=== PATIENT | female | born 1945 | race Caucasian/White ===

== ENCOUNTER 2018-05-05 10:02 | Outpatient (CLI) | payer MEDICARE ==
--- NOTE | 2018-05-05 12:13 | MMO ---
BILATERAL SCREENING MAMMOGRAM: HISTORY: A 72-year-old female. Routine screening mammography. COMPARISON: 03/25/2017, 02/25/2017, 07/14/2013. TECHNIQUE: CC and MLO views of both breasts are submitted for interpretation. This patient's mammogram is revie wed with the assistance of computer-aided detection. FINDINGS: Breasts are composed of scattered fibroglandular tissue. Bilaterally, no suspicious dominant mass, a rchitectural distortion, or suspicious calcification. Benign-appearing calcifications in the left br east. IMPRESSION: BI-RADS category 2, benign findings. RECOMMENDATION: Annual mammogram. BIRADS 2: Benign Finding(s) Routine annual screening mammography (for women over age 40) POS: YASMIN
== END 2018-05-05 10:03 | disposition home or self-care (01) ==
LOC: SCSMAMMO 10:02
PROVIDERS: ATTEND Family Medicine
DX: Z12.31 Encounter for screening mammogram for malignant neoplasm of breast (principal)
CPT/HCPCS: 77067

== ENCOUNTER 2018-06-23 21:14 | Emergency (ER) | payer MEDICARE ==
[2018-06-23] MEDS ORDERED: Ondansetron PF 4 MG/2 ML Vial ONE (22:51)
[2018-06-23 22:59] LABS: Hemoglobin 13.5 g/dL (12.0-16.0); Mean Corpuscular HGB CONC 32.5 g/dL (32.0-36.0); Mean Corpuscular Hemoglobin 28.1 pg (27.0-31.0); Mean Corpuscular Volume 86.5 fL (78.0-98.0); Mean Platelet Volume 6.1 fL (7.4-10.4); Platelet Count 240 thou/uL (130-400); RBC Distribution Width 13.2 % (11.5-14.5); Red Blood Cell (RBC) Count 4.81 mill/uL (4.20-5.40); White Blood Cell (WBC) Count 7.9 thou/uL (4.8-10.8)
[2018-06-23 23:00] LABS: ALT (SGPT) 29 U/L (8-55); AST (SGOT) 20 U/L (5-34); Albumin 3.9 g/dL (3.4-4.8); Alkaline Phosphatase 102 U/L (40-150); Anion Gap 15 mmol/L (10-20); BUN (Urea Nitrogen) 21 mg/dL (9.8-20.1); Bilirubin, Total 0.3 mg/dL (0.2-1.2); Calc. Creatinine Clearance 0 mL/min (70-130); Calcium 9.4 mg/dL (7.8-10.44); Carbon Dioxide 23 mmol/L (23-31); Chloride 106 mmol/L (98-107); Estimated GFR-MDRD 37; Glucose 119 mg/dL (83-110); Potassium 4.5 mmol/L (3.5-5.1); Protein, Total 6.9 g/dL (6.0-8.3); Sodium 139 mmol/L (136-145)
[2018-06-23 23:05] LABS: Band 3 % (5-11); Eosinophils 1 % (0-10); Lymphocytes 32 % (21-51); MDiff Complete? YES; Monocytes 9 % (0-10); Neutrophil 55 % (42-75)
== END 2018-06-23 23:08 | disposition left against medical advice (07) ==
LOC: SCSER 21:14
DX: R31.9 Hematuria, unspecified (principal); R11.2 Nausea with vomiting, unspecified; R19.7 Diarrhea, unspecified; G51.0 Bell's palsy; G43.909 Migraine, unspecified, not intractable, without status migrainosus
CPT/HCPCS: 80053; 85025; 93005; J2405

== ENCOUNTER 2019-12-10 07:05 | Outpatient (CLI) | payer MEDICARE, OTHER ==
[2019-12-10 14:20] LABS: Hemoglobin 13.8 g/dL (12.0-16.0); Mean Corpuscular HGB CONC 32.1 g/dL (32.0-36.0); Mean Corpuscular Hemoglobin 29.7 pg (27.0-31.0); Mean Corpuscular Volume 92.3 fL (78.0-98.0); Mean Platelet Volume 7.4 fL (7.4-10.4); Platelet Count 306 thou/uL (130-400); RBC Distribution Width 12.5 % (11.5-14.5); Red Blood Cell (RBC) Count 4.67 mill/uL (4.20-5.40); White Blood Cell (WBC) Count 6.4 thou/uL (4.8-10.8)
[2019-12-10 14:24] LABS: EPI 105 SEC (67-199); Platelet Count 301 thou/uL (130-400)
[2019-12-10 14:29] LABS: INR-International Normal Ratio 0.9; PTT 32.2 sec (22.9-36.1); Prothrombin Time 12.2 sec (12.0-14.7)
[2019-12-10 14:44] LABS: Anion Gap 13 mmol/L (10-20); BUN (Urea Nitrogen) 12 mg/dL (9.8-20.1); Calc. Creatinine Clearance 0 mL/min (70-130); Calcium 9.1 mg/dL (7.8-10.44); Carbon Dioxide 27 mmol/L (23-31); Chloride 107 mmol/L (98-107); Estimated GFR-MDRD 53; Glucose 95 mg/dL (83-110); Potassium 4.4 mmol/L (3.5-5.1); Sodium 143 mmol/L (136-145)
[2019-12-11 14:55] LABS: SARS-CoV-2 MS2 Positive; SARS-CoV-2 N Gene Negative; SARS-CoV-2 S Gene Negative; SARS-CoV-2 by NAA Not Detected (NotDetected); SARS-CoV-2 orf1ab Negative
== END 2019-12-10 07:06 | disposition home or self-care (01) ==
LOC: LABBT 07:05
PROVIDERS: ATTEND Urology
DX: Z01.812 Encounter for preprocedural laboratory examination (principal); Z20.828 Contact with and (suspected) exposure to other viral communicable diseases; N20.2 Calculus of kidney with calculus of ureter
CPT/HCPCS: 80048; 85027; 85576; 85610; 85730; U0003; 87635

== ENCOUNTER 2019-12-15 06:04 | Day surgery (SDC) | payer MEDICARE ==
[2019-12-13 12:02] VITALS: BMI 27.1
[2019-12-15] MEDS ORDERED: Fentanyl 100 MCG/2 ML VIAL ONE (06:35)
[2019-12-15] MEDS ORDERED: Iothalamate Meglumine 60% 50 ML VIAL FS ONE (06:45)
--- NOTE | 2019-12-15 08:42 | RAD ---
SUPINE ABDOMEN: HISTORY: Renal stones. COMPARISON: Comparison is made to supine film of 12/03/[address] of 12/08/2019. FINDINGS: The numerous calculi in the left renal collecting structures are identified on plain film with the la rgest measuring in the 8-10 mm range. The large irregularly shaped calculus in the upper collecting structures of the right kidney seen on CT measuring up to 1.5 cm is identified. Phlebolith-type calcifications in the pelvis. Bowel gas pa ttern unremarkable. IMPRESSION: Bilateral renal calculi again noted. POS: AGW
--- NOTE | 2019-12-15 09:50 | OP ---
DATE OF PROCEDURE: 12/15/2019 PREOPERATIVE DIAGNOSIS: Right mid-ureteral stone. POSTOPERATIVE DIAGNOSIS: Right mid-ureteral stone. PROCEDURES PERFORMED: Cystoscopy, right retrograde, right stent, and right extracorporeal shockwave lithotripsy. ANESTHESIA: General. ESTIMATED BLOOD LOSS: Not recorded. FINDINGS: There was at least a 7.5 mm size stone sitting over the right iliac region. Because of this, she was treated from anterior approach. A total of 3000 shocks was given at the maximum level of 5. The stone did appear to change its shape and lighten up. The stent was left indwelling without a string, it was a 6 x 24 cm. DESCRIPTION OF PROCEDURE: After obtaining written and verbal consent from the patient after receiving IV antibiotics after documenting normal preoperative blood work and platelet function assay and being sure we could see her stone on a KUB, she was taken to the operating suite. She was placed initially in a supine position on the treatment table. PlexiPulses were placed on lower extremities and turned on. She was given a general anesthetic and oral obturator intubation. She was placed in dorsal lithotomy position and sterilely prepped and draped. Cystoscopy was performed with a 22-Bolivian sheath. This was well lubricated, passed under direct vision through the female urethra into the urinary bladder. The bladder was filled and emptied. A guidewire was fed up the right ureter to the level of stone and met resistance at this point. A 5-Bolivian Pollack catheter was advanced over it. We injected contrast and loosen up the stone. We tried to get the stone to move up into the dilated ureter proximal to this, so that we could treat it from a posterior approach, but we would not get off the iliac bones or sacral bones. We fed a guidewire up all the way up into the kidney, passed the stent over the guidewire, leaving the stent in place as we removed the guidewire. She was then re-placed to a supine position and coupled to the lithotripter unit. The stone was placed in treatment focal point. Shockwave therapy was commenced at a low kV and very quickly brought up to the level 5. Fluoroscopy was used intermittently to document stone fragmentation and reposition as necessary. After 3000 shocks, it was terminated. She was awakened, extubated, and taken by stretcher to recovery room. Job ID: [id number]
[2019-12-15] MEDS ORDERED: Ondansetron PF 4 MG/2 ML Vial ONE (11:04)
[2019-12-15] MEDS ORDERED: Lidocaine 1% PF 5 ML VIAL ONE (11:04)
[2019-12-15] MEDS ORDERED: PROPOFOL 200 MG/20 ML VIAL ONE (11:04)
[2019-12-15] MEDS ORDERED: Dexamethasone 20 MG/5 ML VIAL ONE (11:04)
[2019-12-15] MEDS ORDERED: EPHEDRINE 25 MG/5 ML SYRINGE ONE (11:04)
[2019-12-15] MEDS ORDERED: PHENYLEPHRINE-NS 100 MCG/ML 10 ML SYRINGE ONE (11:04)
--- NOTE | 2019-12-15 15:07 | EKG ---
Test Reason : PREOP Blood Pressure : / mmHG Vent. Rate : 083 BPM Atrial Rate : 083 BPM P-R Int : 162 ms QRS Dur : 124 ms QT Int : 418 ms P-R-T Axes : 063 -21 020 degrees QTc Int : 491 ms Normal sinus rhythm Right bundle branch block Abnormal ECG Confirmed by HO NICHOLSON ([id number]) on 12/15/2019 3:07:31 PM Referred By: COLLINS Confirmed By:HO NICHOLSON
== END 2019-12-15 11:20 | disposition home or self-care (01) ==
LOC: SDC 06:04
PROVIDERS: ATTEND Urology
PROC: 0TF6XZZ Fragmentation in Right Ureter, External Approach (ICD-10-PCS; principal; 2019-12-15)
PROC: 0T768DZ Dilation of Right Ureter with Intraluminal Device, Via Natural or Artificial Opening Endoscopic (ICD-10-PCS; 2019-12-15)
DX: N20.2 Calculus of kidney with calculus of ureter (principal)
CPT/HCPCS: 74018; 93005; 93010; J0690; J1100; J2405; J2704; J3010

== ENCOUNTER 2020-01-06 08:43 | Outpatient (CLI) | payer MEDICARE, OTHER ==
[2020-01-07 11:01] LABS: SARS-CoV-2 MS2 Positive; SARS-CoV-2 N Gene Negative; SARS-CoV-2 S Gene Negative; SARS-CoV-2 by NAA Not Detected (NotDetected); SARS-CoV-2 orf1ab Negative
== END 2020-01-06 08:44 | disposition home or self-care (01) ==
LOC: LABBT 08:43
DX: N20.2 Calculus of kidney with calculus of ureter (principal); Z20.828 Contact with and (suspected) exposure to other viral communicable diseases
CPT/HCPCS: 87086; 87635; U0003

== ENCOUNTER 2020-01-10 09:48 | Day surgery (SDC) | payer MEDICARE ==
[2020-01-07 09:23] VITALS: BMI 26.6
[~2020-01-10 09:48] MED LIST: Dexamethasone 20 MG/5 ML VIAL ONE; Ondansetron PF 4 MG/2 ML Vial ONE; PHENYLEPHRINE-NS 100 MCG/ML 10 ML SYRINGE ONE; PROPOFOL 200 MG/20 ML VIAL ONE
[2020-01-10] MEDS ORDERED: Fentanyl 100 MCG/2 ML VIAL ONE (11:12)
[2020-01-10] MEDS ORDERED: Midazolam HCl 2 mg/2 ml Vial ONE (11:12)
[2020-01-10] MEDS ORDERED: Iothalamate Meglumine 60% 50 ML VIAL FS ONE (11:13)
--- NOTE | 2020-01-10 14:30 | RAD ---
EXAM: Retrograde IVP HISTORY: Kidney stones COMPARISON: 05/18/2015, 01/05/2020 FINDINGS/IMPRESSION: Limited intraoperative fluoroscopic views of the retrograde IVP were submitted f or interpretation. Calcifications are seen projecting over both kidney shadows. No obvious filling defects are seen. No hydronephrosis is seen. Wires and a lithotripsy device are eventually placed in to the right kidney and the calcification in the right kidney appears to be fragmented on the latter images. Eventually, a double-J ureteral stent is placed on the right in good position.
[2020-01-10] MEDS ORDERED: Acetaminophen 500 MG TAB ONE (15:19)
--- NOTE | 2020-01-10 23:49 | OP ---
DATE OF PROCEDURE: 01/10/2020 PREOPERATIVE DIAGNOSES: Right ureteral and right renal stones. She already has a stent. POSTOPERATIVE DIAGNOSES: Right ureteral and right renal stones. She already has a stent. PROCEDURES PERFORMED: Cystoscopy, right rigid and right flexible ureteroscopy with laser lithotripsy, and stone retrieval of the mid right ureteral and right renal stone. ANESTHESIA: General. ESTIMATED BLOOD LOSS: Less than 50 mL. DRAINS PLACED: A 6 x 24 Polaris double-J stent with a string left attached to it. DESCRIPTION OF PROCEDURE: After obtaining written and verbal consent from the patient after receiving IV antibiotics, she was taken to the operating suite. She was placed in a supine position on the treatment table. PlexiPulses were placed on her lower extremities and turned on. She was given a general anesthetic and oral obturator intubation. She was then placed in the dorsal lithotomy position and sterilely prepped and draped. Cystoscopy was performed with a 22-Luxembourgish sheath, this was well lubricated and passed under direct vision through the female urethra into the urinary bladder with aid of a 30-degree lens and video camera and monitor. The indwelling double-J stent was grasped and brought out through the urethral meatus. A guidewire could not be fed up all the way. It went up about 90% of the way, but when it got to the last slight coil of the proximal end of the stent, it would not pass. For this reason, we had just placed a guidewire adjacent to the stent. While doing that, it allowed the stent to straighten out and then we were able to remove that stent intact and discarded it, leaving a guidewire that we had just placed up the right ureter, passed the stone up in the region of renal pelvis. We then brought in a dual-lumen catheter, placed it over our green guidewire to just distal to the mid ureteral stone. We then injected contrast easily went by the stone, filling out a slightly dilated proximal ureter and mild caliectasis. We fed a blue stiff wire across the second lumen of the dual-lumen catheter, easily went up in the region of the renal pelvis. We then removed the dual-lumen catheter and brought in the ureteral sheath and placed it just distal to the stone. We removed the obturator and we removed the blue wire. We brought in our rigid small caliber graduated ureteroscope and then with aid of a video camera, passed this through the sheath and to the level of stone. The stone was in probably about 4 to 5 mm, it was in a couple of pieces from prior shockwave. She has actually passed some number of pieces since that time, but just has not passed these. We used the holmium laser fiber to break up these pieces and then we used a basket to remove these pieces. At this point, we went ahead and removed the flexible scope. We fed our blue stiff wire through the sheath and up into the proximal ureter, up into the renal pelvis. We then passed the obturators over the blue wire back into the sheath and then we went up with the sheath to the renal pelvis. She had very small stones on her CAT scan in the calyceal system. We examined each of these with a flexible ureteroscope. This was done after removing the sheath and a stiff blue wire. These were actually just knocked loose from the renal papilla, where there were adherent. This was easily done. She had a larger stone greater than a centimeter in the small middle calyx, and we used the holmium fiber to break this up into smaller and smaller pieces and then used a Nitinol basket to remove as many of the sizable pieces as we could leave just a very small fragments remaining. At this point, we backloaded our sheath under direct vision with aid of a flexible ureteroscope. There were no other abnormalities noted along the course of the ureter. Through our remaining guidewire, we backloaded it through our cystoscopic sheath and placed the Pollack catheter 5-Luxembourgish over it up in the region of renal pelvis, removed the guidewire and injected about 15 mL of contrast to fill out the entire collecting system and ureter on this side. There was no extravasation. There was no significant filling defect. There was no significant obstruction. Our guidewire was passed back through the Pollack catheter. The Pollack catheter was removed, and then a 6 x 24 Polaris double-J stent with a string attached was placed over the guidewire and placed up in the good position with a pusher, so its proximal end coiled in the renal pelvis and its distal end coiled in the bladder when the wire was removed. The bladder was drained. The instruments were removed. The string was cut 2 or 3 inches after it exited the urethral meatus. She was taken out of the dorsal lithotomy position. She was awakened and extubated, and taken by stretcher to the recovery room. Job ID: [id number]
== END 2020-01-10 15:40 | disposition home or self-care (01) ==
LOC: SDC 09:48
PROVIDERS: ATTEND Urology
PROC: 0TC38ZZ Extirpation of Matter from Right Kidney Pelvis, Via Natural or Artificial Opening Endoscopic (ICD-10-PCS; principal; 2020-01-10)
PROC: 0TC68ZZ Extirpation of Matter from Right Ureter, Via Natural or Artificial Opening Endoscopic (ICD-10-PCS; 2020-01-10)
PROC: 0T768DZ Dilation of Right Ureter with Intraluminal Device, Via Natural or Artificial Opening Endoscopic (ICD-10-PCS; 2020-01-10)
DX: N20.2 Calculus of kidney with calculus of ureter (principal); M19.90 Unspecified osteoarthritis, unspecified site; Z79.899 Other long term (current) drug therapy
CPT/HCPCS: 74420; J0690; J1100; J2250; J2405; J2704; J3010

== ENCOUNTER 2021-01-17 09:27 | Inpatient (IN) | payer MEDICARE ==
[2021-01-17 10:54] LABS: Hemoglobin 14.2 g/dL (12.0-16.0); Mean Corpuscular HGB CONC 32.5 g/dL (32.0-36.0); Mean Corpuscular Hemoglobin 29.4 pg (27.0-31.0); Mean Corpuscular Volume 90.5 fL (78.0-98.0); Mean Platelet Volume 7.2 fL (7.4-10.4); Platelet Count 309 thou/uL (130-400); RBC Distribution Width 12.8 % (11.5-14.5); Red Blood Cell (RBC) Count 4.84 mill/uL (4.20-5.40); White Blood Cell (WBC) Count 24.5 thou/uL (4.8-10.8)
[2021-01-17 11:06] LABS: Anion Gap 18 mmol/L (10-20); BUN (Urea Nitrogen) 23 mg/dL (9.8-20.1); Calc. Creatinine Clearance 0 mL/min (70-130); Calcium 9.4 mg/dL (7.8-10.44); Carbon Dioxide 25 mmol/L (23-31); Chloride 104 mmol/L (98-107); Glucose 118 mg/dL (83-110); Potassium 5.5 mmol/L (3.5-5.1); Sodium 141 mmol/L (136-145)
[2021-01-17 11:17] LABS: Band 41 % (5-11); Lymphocytes 7 % (21-51); MDiff Complete? YES; Metamyelocyte 1 % (0-0); Monocytes 4 % (0-10); Neutrophil 47 % (42-75); Platelet Morphology Comment Appears Adequate; RBC Morphology Normal; Reflex for Review?? NO
[2021-01-17 11:46] LABS: Bilirubin Negative (Negative); Blood, Urine Trace (Negative); Clarity Turbid (Clear); Glucose, Urine (Dipstick) Normal (Negative); Ketone, Urine Negative (Negative); Leukocyte 500 Leu/uL (Negative); Nitrite Negative (Negative); Protein, Urine (Dipstick) 30 mg/dL (Neg-Trace); Specific Gravity, Urine 1.025 (1.002-1.036); Squamous Epithelial 0-3 HPF (0-3); WBC/HPF Greater than 50 HPF (0-3); pH, Urine 6.5 (5.0-9.0)
[2021-01-17 11:47] LABS: Bacteria/HPF 1+ HPF (None Seen)
[2021-01-17] MEDS ORDERED: cefTRIAXone\\ROCEPHIN 2 GM VIAL ONE (12:09)
[2021-01-17] MEDS ORDERED: Vancomycin 1 GM/200 ML BAG ONE (12:34)
[2021-01-17] MEDS ORDERED: Ketorolac Tromethamine 30 MG/ML VIAL IVP PRN (13:47)
[2021-01-17] MEDS ORDERED: Ondansetron ODT 4 MG TAB PO PRN (13:47)
[2021-01-17] MEDS ORDERED: Ondansetron PF 4 MG/2 ML Vial IVP PRN (13:47)
[2021-01-17] MEDS ORDERED: Sodium Chloride 0.9% 1,000 ML IV SCH ×2 (14:00→15:37)
[2021-01-17 14:38] LABS: SARS-CoV-2 NAA Rapid Test Not Detected (NotDetected)
[2021-01-17] MEDS ORDERED: Fentanyl 100 MCG/2 ML VIAL ONE (14:53)
[2021-01-17 14:56] VITALS: BMI 26.3
[2021-01-17] MEDS ORDERED: Iothalamate Meglumine 60% 50 ML VIAL FS ONE (14:58)
[2021-01-17] MEDS ORDERED: Lidocaine 1% PF 5 ML VIAL ONE (15:28)
[2021-01-17] MEDS ORDERED: Ondansetron PF 4 MG/2 ML Vial ONE (15:28)
[2021-01-17] MEDS ORDERED: Ketorolac Tromethamine 30 MG/ML VIAL ONE (15:28)
[2021-01-17] MEDS ORDERED: PROPOFOL 200 MG/20 ML VIAL ONE (15:28)
[2021-01-17] MEDS ORDERED: Glycopyrrolate 0.2 MG/ML 5 ML SYRINGE ONE (15:28)
[2021-01-17] MEDS ORDERED: Dexamethasone 20 MG/5 ML VIAL ONE (15:28)
[2021-01-17] MEDS ORDERED: Rocuronium Bromide 10 MG/ML (10ML VIAL) ONE (15:28)
[2021-01-17] MEDS ORDERED: PHENYLEPHRINE-NS 100 MCG/ML 10 ML SYRINGE ONE (15:28)
[2021-01-17] MEDS ORDERED: cefTRIAXone\\ROCEPHIN 2 GM in Sodium Chloride 0.9% 100 ML IVPB SCH (15:30)
[2021-01-17] MEDS ORDERED: SUGAMMADEX SODIUM 200 MG/2 ML VIAL ONE (16:01)
[2021-01-17] MEDS ORDERED: Promethazine HCl 25 MG/ML VIAL IVPB PRN (16:10)
[2021-01-17] MEDS ORDERED: Promethazine HCl 25 MG/ML VIAL IM PRN (16:10)
[2021-01-17] MEDS ORDERED: Ondansetron HCl/PF 4 MG/2 ML Vial IVP PRN (16:10)
[2021-01-17] MEDS ORDERED: Morphine 4 MG/ML VIAL SLOW IVP PRN (16:19)
[2021-01-17 19:19] LABS: Anion Gap 14 mmol/L (10-20); BUN (Urea Nitrogen) 25 mg/dL (9.8-20.1); Calc. Creatinine Clearance 27 mL/min (70-130); Carbon Dioxide 19 mmol/L (23-31); Chloride 114 mmol/L (98-107); Glucose 107 mg/dL (83-110); Potassium 3.8 mmol/L (3.5-5.1); Sodium 143 mmol/L (136-145)
[2021-01-17] MEDS: Sodium Chloride 0.45% 1,000 ML IV SCH (19:49)
[2021-01-17] MEDS ORDERED: Vancomycin 1.5 GRAM/300 ML BAG 1.5 GM in Premix Bag 1 BAG IVPB SCH (21:00)
[2021-01-18] MEDS: Sodium Chloride 0.45% 1,000 ML IV SCH ×3 (02:41→21:43)
[2021-01-18 06:42] LABS: Hemoglobin 11.6 g/dL (12.0-16.0); Mean Corpuscular HGB CONC 32.1 g/dL (32.0-36.0); Mean Corpuscular Volume 93.5 fL (78.0-98.0); Platelet Count 179 thou/uL (130-400); Red Blood Cell (RBC) Count 3.85 mill/uL (4.20-5.40); White Blood Cell (WBC) Count 23.1 thou/uL (4.8-10.8)
[2021-01-18 06:57] LABS: Anion Gap 13 mmol/L (10-20); BUN (Urea Nitrogen) 31 mg/dL (9.8-20.1); Calc. Creatinine Clearance 25 mL/min (70-130); Calcium 8.2 mg/dL (7.8-10.44); Carbon Dioxide 22 mmol/L (23-31); Chloride 111 mmol/L (98-107); Glucose 104 mg/dL (83-110); Potassium 4.5 mmol/L (3.5-5.1); Sodium 141 mmol/L (136-145)
[2021-01-18 07:46] LABS: Band 47 % (5-11); Lymphocytes 4 % (21-51); MDiff Complete? YES; Metamyelocyte 2 % (0-0); Monocytes 2 % (0-10); Neutrophil 45 % (42-75); Platelet Morphology Comment Appears Adequate; Polychromasia SLIGHT = 2-3 cells (100X) (0-2/hpf); Vacuoles SLIGHT
[2021-01-18] MEDS: Acetaminophen 500 MG TAB PO PRN ×2 (08:05→19:22)
[2021-01-18 12:30] LABS: Vancomycin, Random 8.8 ug/mL (See Comment)
[2021-01-18] MEDS ORDERED: Vancomycin 1 GM in Premix Bag 1 BAG IVPB SCH (13:00)
[2021-01-18] MEDS ORDERED: Vancomycin 1.5 GRAM/300 ML BAG 1.5 GM in Premix Bag 1 BAG IVPB SCH (13:00)
[2021-01-18] MEDS: cefTRIAXone\\ROCEPHIN 2 GM in Sodium Chloride 0.9% 100 ML IVPB SCH (13:16)
[2021-01-18] MEDS: Amitriptyline HCl 25 MG TAB PO SCH (21:43)
[2021-01-19] MEDS: Acetaminophen 500 MG TAB PO PRN ×2 (03:49→15:27)
[2021-01-19 06:27] LABS: Hemoglobin 11.5 g/dL (12.0-16.0); Mean Corpuscular HGB CONC 33.3 g/dL (32.0-36.0); Mean Corpuscular Hemoglobin 30.6 pg (27.0-31.0); Mean Corpuscular Volume 91.9 fL (78.0-98.0); Platelet Count 142 thou/uL (130-400); RBC Distribution Width 13.2 % (11.5-14.5); Red Blood Cell (RBC) Count 3.77 mill/uL (4.20-5.40); White Blood Cell (WBC) Count 10.5 thou/uL (4.8-10.8)
[2021-01-19 06:34] LABS: Anion Gap 13 mmol/L (10-20); BUN (Urea Nitrogen) 37 mg/dL (9.8-20.1); Calc. Creatinine Clearance 26 mL/min (70-130); Calcium 7.9 mg/dL (7.8-10.44); Carbon Dioxide 18 mmol/L (23-31); Chloride 110 mmol/L (98-107); Glucose 88 mg/dL (83-110); Potassium 4.2 mmol/L (3.5-5.1); Sodium 137 mmol/L (136-145)
[2021-01-19 06:41] LABS: Band 33 % (5-11); Eosinophils 1 % (0-10); Lymphocytes 4 % (21-51); MDiff Complete? YES; Metamyelocyte 1 % (0-0); Monocytes 1 % (0-10); Neutrophil 60 % (42-75); Vacuoles SLIGHT
[2021-01-19] MEDS: Vit A,C & E/Lutein/Minerals Tablet PO SCH (07:59)
[2021-01-19] MEDS: Sodium Chloride 0.45% 1,000 ML IV SCH ×2 (07:59→21:00)
[2021-01-19] MEDS: Cyanocobalamin (Vitamin B-12) 1,000 MCG TAB PO SCH (07:59)
[2021-01-19] MEDS: cefTRIAXone\\ROCEPHIN 2 GM in Sodium Chloride 0.9% 100 ML IVPB SCH (12:03)
[2021-01-19] MEDS: Amitriptyline HCl 25 MG TAB PO SCH (20:39)
[2021-01-20] MEDS: Vit A,C & E/Lutein/Minerals Tablet PO SCH (08:13)
[2021-01-20] MEDS: Cyanocobalamin (Vitamin B-12) 1,000 MCG TAB PO SCH (08:13)
[2021-01-20 08:19] VITALS: BP 131/86; TEMP 98.3
[2021-01-20] MEDS: cefTRIAXone\\ROCEPHIN 2 GM in Sodium Chloride 0.9% 100 ML IVPB SCH (11:25)
[2021-01-20] MEDS: Sodium Chloride 0.45% 1,000 ML IV SCH (13:09)
[2021-01-20 16:10] LABS: Hemoglobin 12.4 g/dL (12.0-16.0); Mean Corpuscular HGB CONC 33.8 g/dL (32.0-36.0); Mean Corpuscular Hemoglobin 30.4 pg (27.0-31.0); Mean Corpuscular Volume 89.9 fL (78.0-98.0); Mean Platelet Volume 7.6 fL (7.4-10.4); Platelet Count 197 thou/uL (130-400); RBC Distribution Width 13.1 % (11.5-14.5); Red Blood Cell (RBC) Count 4.09 mill/uL (4.20-5.40); White Blood Cell (WBC) Count 10.9 thou/uL (4.8-10.8)
[2021-01-20 16:25] LABS: Anion Gap 15 mmol/L (10-20); BUN (Urea Nitrogen) 25 mg/dL (9.8-20.1); Calc. Creatinine Clearance 36 mL/min (70-130); Calcium 8.5 mg/dL (7.8-10.44); Carbon Dioxide 19 mmol/L (23-31); Chloride 109 mmol/L (98-107); Glucose 79 mg/dL (83-110); Potassium 4.1 mmol/L (3.5-5.1); Sodium 139 mmol/L (136-145)
[2021-01-20 16:30] LABS: Band 19 % (5-11); Eosinophils 4 % (0-10); Lymphocytes 8 % (21-51); MDiff Complete? YES; Monocytes 8 % (0-10); Neutrophil 61 % (42-75); Platelet Morphology Comment Appears Adequate; RBC Morphology Normal
== END 2021-01-20 18:39 | disposition home or self-care (01) | DRG 854 ==
LOC: ERS 09:27 → T4-B 12:35
PROVIDERS: ADMIT Family Medicine; ATTEND Internal Medicine
PROC: 0T778DZ Dilation of Left Ureter with Intraluminal Device, Via Natural or Artificial Opening Endoscopic (ICD-10-PCS; principal; 2021-01-17)
PROC: BT1F1ZZ Fluoroscopy of Left Kidney, Ureter and Bladder using Low Osmolar Contrast (ICD-10-PCS; 2021-01-17)
DX: A41.51 Sepsis due to Escherichia coli [E. coli] (principal); N13.6 Pyonephrosis; N17.9 Acute kidney failure, unspecified; Z20.822 Contact with and (suspected) exposure to COVID-19; E87.5 Hyperkalemia; R65.20 Severe sepsis without septic shock; N18.30 Chronic kidney disease, stage 3 unspecified; D53.9 Nutritional anemia, unspecified; G51.0 Bell's palsy; G43.909 Migraine, unspecified, not intractable, without status migrainosus; Z87.442 Personal history of urinary calculi; Z90.49 Acquired absence of other specified parts of digestive tract; Z90.710 Acquired absence of both cervix and uterus
CPT/HCPCS: 36415; 74176; 74420; 80048; 80202; 81003; 81015; 83605; 85025; 87040; 87077; 87086; 87149; 87186; 93005; 96365; 96367; C2617; J0696; J1100; J1885; J2405; J2704; J3010; J3370; J3490; J7050; Q9961-U8; U0002

== ENCOUNTER 2021-01-31 12:00 | Outpatient (CLI) | payer MEDICARE ==
[2021-01-31 13:09] LABS: Bilirubin Neg (Negative); Blood, Urine 250 (Negative); Clarity Clear (Clear); Glucose, Urine (Dipstick) Normal (Negative); Ketone, Urine Negative (Negative); Leukocyte 500 (Negative); Nitrite Negative (Negative); Protein, Urine (Dipstick) 30 mg/dl (Neg-Trace); Specific Gravity, Urine 1.015 (1.002-1.036); Urobilinogen Normal mg/dL (Less than 2)
[2021-01-31 13:11] LABS: Hemoglobin 11.8 g/dL (12.0-15.5); Mean Corpuscular HGB CONC 31.1 g/dL (32.0-36.0); Mean Corpuscular Hemoglobin 27.9 pg (27.0-33.0); Mean Corpuscular Volume 89.8 fl (81.6-98.3); Platelet Count 538 10x3/uL (150-450); RBC Distribution Width 15.5 % (11.5-14.5); Red Blood Cell (RBC) Count 4.23 10x6/uL (3.90-5.03); White Blood Cell (WBC) Count 10.5 10x3/uL (3.5-10.5)
[2021-01-31 13:18] LABS: RBC/HPF 21-50 HPF (0-3); Squamous Epithelial 0-3 HPF (0-3)
[2021-01-31 13:19] LABS: Bacteria/HPF Rare-Few HPF (None Seen)
[2021-01-31 13:36] LABS: Anion Gap 14 mmol/L (10-20); BUN (Urea Nitrogen) 13 mg/dL (9.8-20.1); Calc. Creatinine Clearance 0 mL/min (70-130); Calcium 9.3 mg/dL (7.8-10.44); Carbon Dioxide 26 mmol/L (23-31); Chloride 106 mmol/L (98-107); Glucose 89 mg/dL (83-110); Potassium 4.7 mmol/L (3.5-5.1); Sodium 141 mmol/L (136-145)
[2021-01-31 13:37] LABS: PTT 30.1 sec (22.0-33.0); Prothrombin Time 10.9 sec (9.5-12.1)
[2021-02-01 11:58] LABS: SARS-CoV-2 PCR by NAA Not Detected (NotDetected)
== END 2021-01-31 12:01 | disposition home or self-care (01) ==
LOC: LABBT 12:00
PROVIDERS: ATTEND Urology
DX: Z01.812 Encounter for preprocedural laboratory examination (principal); N20.2 Calculus of kidney with calculus of ureter; Z20.822 Contact with and (suspected) exposure to COVID-19
CPT/HCPCS: 80048; 81001; 85027; 85610; 85730; 87086; U0003; U0005

== ENCOUNTER 2021-02-05 07:11 | Day surgery (SDC) | payer MEDICARE ==
[2021-02-02 13:19] VITALS: BMI 25.9
[2021-02-05] MEDS ORDERED: Fentanyl 100 MCG/2 ML VIAL ONE (09:24)
[2021-02-05] MEDS ORDERED: Levofloxacin 500 mg/D5W 100 ml Premix Bag ONE (09:34)
[2021-02-05] MEDS ORDERED: PHENYLEPHRINE-NS 100 MCG/ML 10 ML SYRINGE ONE (09:48)
[2021-02-05] MEDS ORDERED: Rocuronium Bromide 10 MG/ML (10ML VIAL) ONE (09:48)
[2021-02-05] MEDS ORDERED: PROPOFOL 200 MG/20 ML VIAL ONE (09:48)
[2021-02-05] MEDS ORDERED: Glycopyrrolate 0.2 MG/ML 5 ML SYRINGE ONE (09:48)
[2021-02-05] MEDS ORDERED: Dexamethasone 20 MG/5 ML VIAL ONE (09:48)
[2021-02-05] MEDS ORDERED: Lidocaine 1% PF 5 ML VIAL ONE (09:48)
[2021-02-05] MEDS ORDERED: Ondansetron PF 4 MG/2 ML Vial ONE (09:48)
== END 2021-02-05 12:27 | disposition home or self-care (01) ==
LOC: SDC 07:11
PROVIDERS: ATTEND Urology
PROC: 0TC48ZZ Extirpation of Matter from Left Kidney Pelvis, Via Natural or Artificial Opening Endoscopic (ICD-10-PCS; principal; 2021-02-05)
PROC: 0T778DZ Dilation of Left Ureter with Intraluminal Device, Via Natural or Artificial Opening Endoscopic (ICD-10-PCS; 2021-02-05)
DX: N20.0 Calculus of kidney (principal); N28.89 Other specified disorders of kidney and ureter; Z79.899 Other long term (current) drug therapy
CPT/HCPCS: 74420; 82365; 88300; J1100; J1956; J2405; J2704; J3010